=== PATIENT | male | born 1965 | race Caucasian/White ===

== ENCOUNTER 2017-03-22 15:24 | Emergency (ER) | payer OTHER ==
[~2017-03-22] VITALS: Ht 160 cm; Wt 79.0 kg
[2017-03-22 15:26] VITALS: Ht 160 cm; Wt 79.0 kg
[2017-03-22] MEDS ORDERED: KET2CR15 TOP (16:37)
[2017-03-22] MEDS ORDERED: GRIS500T6 PO (16:37)
[2017-03-22] MEDS ORDERED: MED4DP PO (16:37)
--- NOTE | 2017-03-22 19:53 | ERD ---
ER Documentation Chief Complaint Date/Time DATE: 03/22/17 TIME: 19:49 Chief Complaint RASH AND ITCHING HPI 51-year-old male patient with no significant past medical history presents to the ED complaining of a rash that has been going on for the last 25 years. Reports that it is mostly in the dorsal aspect of patient's bilateral forearms, right abdomen, groin, popliteal fossa and calf region. States that he also has a [place] of loss of hair in the back of his head. States that the last time he took medication was 10 years ago. Patient states that it is very itchy. States that he does not like to wear T-shirts since it shows his rashes. States that that was last time he also saw a geneticist. Reports that he has not had any treatment since then. Denies any loss of sensation, loss of range of motion, shortness of breath, lip swelling, tongue swelling, wheezing, fever, chills. Denies others having the same rash. Denies using any new soaps, detergents, creams. ROS All systems reviewed and are negative except as per history of present illness. Medications Home Meds Active Scripts Methylprednisolone* (Medrol* DOSE PACK) 4 Mg/Dose-Pack Tab.ds.pk, 4 MG PO . DIRECTED, #1 PACKET Prov:SUMMER AREVALO PA-C 03/22/17 Ketoconazole* (Ketoconazole* 2% Cream (15gm)) 1 Applic Cr, 1 APPLIC TOP BID, #1 TUB apply for 2 weeks Prov:SUMMER AREVALO PA-C 03/22/17 Griseofulvin,microsize (Griseofulvin) 500 Mg Tablet, 500 MG PO DAILY, #28 TAB 500 mg PO daily everyday for 4 weeks Prov:SUMMER AREVALO PA-C 03/22/17 Allergies Allergies: Coded Allergies: No Known Drug Allergy (Verified Allergy, Mild, 09/06/14) PMhx/Soc History of Surgery: No Anesthesia Reaction: No Hx Neurological Disorder: No Hx Respiratory Disorders: No Hx Cardiac Disorders: No Hx Psychiatric Problems: No Hx Miscellaneous Medical Probl: No Hx Alcohol Use: No Hx Substance Use: No Hx Tobacco Use: No Smoking Status: Never smoker Physical Exam Vitals Vital Signs Date Time Temp Pulse Resp B/P Pulse Ox O2 Delivery O2 Flow Rate FiO2 03/22/17 15:26 97.7 58 20 160/81 99 Physical Exam Const: [id number], well-nourished. In no acute distress. Head: Atraumatic, normocephalic Eyes: Normal Conjunctiva without injection. No purulent discharge. PERRL. EOMI ENT: Normal external ear. Ear canal without erythema. Tympanic membrane pearly bonilla without effusion or bulging. Nasal canal clear with normal turbinates. Moist oropharynx without tonsillar exudates. Non-erythematous pharynx. Uvula midline. No drooling. No trismus. Neck: Full range of motion. No meningismus. No cervical lymphadenopathy. Resp: Clear to auscultation bilaterally. No wheezing, rhonchi, rales, or crackles. No accessory muscle use. No retractions. Cardio: Regular rate and rhythm. No murmurs, rubs or gallops. Abd: Soft, non tender, non distended. Normal bowel sounds. No palpable masses. No rebound tenderness. No guarding. Skin: No petechiae, purpura. Raised erythematous papules noted on the dorsal aspect of patient's bilateral forearms. Alopecia in a circular shape noted on the posterior occiput. Central clearing with erythematous base noted diffusely on the right abdomen, posterior calf and knees. No fluctuance or induration. No bleeding noted. No purulent discharge noted. Back: No midline tenderness. No CVA tenderness. Ext: No cyanosis, or edema. Neur: Awake and alert. Psych: Normal Mood and Affect Procedures/MDM 51-year-old male patient with no significant past medical history presents the ED complaining of a rash on several parts of his body. Patient is afebrile nontoxic appearing. Patient has normal vital signs. This case was discussed with my supervising physician, Dr. Benavidez who agreed with the diagnosis and discharge plan. Patient could likely have 2 different rashes. Tinea capitis is likely noted on his posterior occiput. The groin region likely is secondary to tinea etiology. Other rashes could likely secondary to chronic psoriasis. A course of Medrol Dosepak, griseofulvin and ketoconazole will be prescribed to patient. Patient was strictly instructed to follow-up with a geneticist for further evaluation and treatment. Low suspicion for scabies, SJS/TEN, erythema multiforme, sepsis, cellulitis, necrotizing fascitis, gangrene, meningococcemia or other emergent conditions. Discharge medications: Medrol Dosepak, Ketoconazole, Griseofulvin Follow up with primary care physician in 1-2 days. Instructed patient to return to the ED sooner for any worsening symptoms. Patient's questions were answered. Patient understood and agreed with discharge plan. Patient discharged stable. Departure Diagnosis: Primary Impression: Tinea capitis Additional Impressions: Tinea of groin Psoriasis Condition: Stable Patient Instructions: What Is Psoriasis?, Fungal Infection, Skin [General], Tinea Cruris, General Referrals: [facility] YOU HAVE RECEIVED A MEDICAL SCREENING EXAM AND THE RESULTS INDICATE THAT YOU DO NOT HAVE A CONDITION THAT REQUIRES URGENT TREATMENT IN THE EMERGENCY DEPARTMENT. FURTHER EVALUATION AND TREATMENT OF YOUR CONDITION CAN WAIT UNTIL YOU ARE SEEN IN YOUR DOCTORS OFFICE WITHIN THE NEXT 1-2 DAYS. IT IS YOUR RESPONSIBILITY TO MAKE AN APPOINTMENT FOR FOLOW-UP CARE. IF YOU HAVE A PRIMARY DOCTOR --you should call your primary doctor and schedule an appointment IF YOU DO NOT HAVE A PRIMARY DOCTOR YOU CAN CALL OUR PHYSICIAN REFERRAL HOTLINE AT IF YOU CAN NOT AFFORD TO SEE A PHYSICIAN YOU CAN CHOSE FROM THE FOLLOWING [facility] [address] [facility]. [facility] [address] [facility]. [facility] [address] [facility] [facility] [address] [facility]. [facility] [address] [facility]. [facility]. [address] [facility]. [facility] YOU HAVE RECEIVED A MEDICAL SCREENING EXAM AND THE RESULTS INDICATE THAT YOU DO NOT HAVE A CONDITION THAT REQUIRES URGENT TREATMENT IN THE EMERGENCY DEPARTMENT. FURTHER EVALUATION AND TREATMENT OF YOUR CONDITION CAN WAIT UNTIL YOU ARE SEEN IN YOUR DOCTORS OFFICE WITHIN THE NEXT 1-2 DAYS. IT IS YOUR RESPONSIBILITY TO MAKE AN APPOINTMENT FOR FOLOW-UP CARE. IF YOU HAVE A PRIMARY DOCTOR --you should call your primary doctor and schedule and appointment IF YOU DO NOT HAVE A PRIMARY DOCTOR YOU CAN CALL OUR PHYSICIAN REFERRAL HOTLINE AT . IF YOU CAN NOT AFFORD TO SEE A PHYSICIAN YOU CAN CHOSE FROM THE FOLLOWING [facility] INSTITUTIONS: [facility] [address] [place] [address] [facility] [address] [place] [address] [facility] [address] [place] [address] [facility] URGENT CARE/SPECIALTIES Additional Instructions: Visite a yoo zaki mckeon para un EXAMEN para un referido olivier a un dermatlogo para evaluacin adicional y tratamiento. Regrese a estas instalaciones si no se mejora sherrell esperbamos o sherrell le dijimos. SUMMER AREVALO PA-C Mar 22, 2017 19:53 SUMMER AREVALO PA-C Mar 22, 2017 19:53
== END 2017-03-22 16:55 | disposition home or self-care (01) ==
LOC: FTE 15:24
DX: B35.0 Tinea barbae and tinea capitis (principal); B35.6 Tinea cruris; L40.9 Psoriasis, unspecified
CPT/HCPCS: 99284

== ENCOUNTER 2017-10-26 18:38 | Emergency (ER) | END 2017-10-26 22:14 | disposition home or self-care (01) ==